=== PATIENT | female | born 1960 | race Two or more races ===

== ENCOUNTER 2022-06-05 11:55 | Inpatient (IN) | payer OTHER ==
[~2022-06-05] VITALS: Ht 162.6 cm; Wt 136.1 kg
[2022-06-05] MEDS ORDERED: MONTELUKAST SODI4 M1 (12:37)
[2022-06-05] MEDS ORDERED: PROTONIX20 MG (12:38)
[2022-06-05] MEDS ORDERED: FLOVENT DISKUS50 MCG (12:39)
[2022-06-05] MEDS ORDERED: PROAIR RESPICL90 MCG (12:39)
[2022-06-05] MEDS ORDERED: BENZONATATE200 M1 (12:39)
[2022-06-05] MEDS ORDERED: CEFTAZIDIME1 GM (12:39)
== END 2022-06-15 15:09 | disposition home or self-care (01) | DRG 194 ==
LOC: ER 11:55 → MEDI 20:39
PROVIDERS: ADMIT Internal Medicine; ATTEND Internal Medicine
PROC: BW24ZZZ Computerized Tomography (CT Scan) of Chest and Abdomen (ICD-10-PCS; principal; 2022-06-05)
PROC: BW24ZZZ Computerized Tomography (CT Scan) of Chest and Abdomen (ICD-10-PCS; 2022-06-14)
DX: J18.9 Pneumonia, unspecified organism (principal); J45.41 Moderate persistent asthma with (acute) exacerbation; R06.02 Shortness of breath; M79.7 Fibromyalgia; Z20.822 Contact with and (suspected) exposure to COVID-19